=== PATIENT | male | born 1975 | race African-American/Black ===

== ENCOUNTER 2017-06-08 01:33 | Emergency (ER) | payer OTHER ==
[~2017-06-08] VITALS: Ht 193 cm; Wt 120.0 kg
[2017-06-08 01:38] VITALS: BP 199/125
== END 2017-06-08 04:40 | disposition home or self-care (01) ==
LOC: ER 01:33
DX: R09.89 Other specified symptoms and signs involving the circulatory and respiratory systems (principal); I10 Essential (primary) hypertension; F12.10 Cannabis abuse, uncomplicated
CPT/HCPCS: 70360; 99284